=== PATIENT | female | born 1960 | race Two or more races ===

== ENCOUNTER 2020-12-11 02:57 | Emergency (ER) | payer SELFPAY ==
[~2020-12-11] VITALS: Ht 162.6 cm; Wt 74.5 kg
[2020-12-11] MEDS ORDERED: methylPREDNISolone SOD SUCC PF 125 MG/2 ML VIAL. IM ONE (03:15)
[2020-12-11] MEDS ORDERED: ALBUTEROL SULFATE 2.5 MG/3 ML NEBU. NEB ONE ×2 (03:15→04:15)
[2020-12-11] MEDS ORDERED: ALBU2.5V14 NEB (03:27)
[2020-12-11] MEDS ORDERED: PRED20TA PO (03:27)
[2020-12-11] MEDS ORDERED: ALBU2.5V8 IH (03:28)
--- NOTE | 2020-12-11 03:29 | PHYS DOC ---
Past Medical History Past Medical History: Asthma Past Surgical History: No Surgical History Smoking Status: Never Smoker Alcohol Use: None General Adult EDM: Chief Complaint: ASTHMA HPI: HPI: Patient is a 60 year old female past medical history asthma presents with a chief complaint of asthma exacerbation. Onset of symptoms around midnight. Patient has associated cough with sputum production. Patient home treatment with albuterol nebulizer with minimal improvement. Patient denies any fevers or chills. Denies any sick contacts. Has not received covid shot. Review of Systems: Review of Systems: Review of systems: Constitutional symptoms- No fever, no chills. Eyes- No Discharge, No Visual Loss Respiratory symptoms- Positive shortness of breath, Positive wheezing, No Dyspnea on Exertion Cardiovascular Systems; No chest pain, No Palpitations, No syncope Gastrointestinal symptoms: NO abdominal pain, no nausea, no vomiting or diarrhea. Genitourinary symptoms: No dysuria. Musculoskeletal symptoms: No back pain No extremity pain. NEUROLOGICAL Symptoms: No headache, no generalized weakness; No focal Weakness Heart Score: C/O Chest Pain: N/A Risk Factors: Risk Factors: DM, Current or recent (<one month) smoker, HTN, HLP, family history of CAD, obesity. Risk Scores: Score 0 - 3: 2.5% MACE over next 6 weeks - Discharge Home Score 4 - 6: 20.3% MACE over next 6 weeks - Admit for Clinical Observation Score 7 - 10: 72.7% MACE over next 6 weeks - Early Invasive Strategies Current Medications: Current Medications Medications (Trade) Dose Ordered Sig/Miahi Start Time Stop Time Status Last Admin Dose Admin Albuterol Sulfate (Ventolin Neb Soln) 2.5 mg 1X ONCE 12/11/20 03:15 12/11/20 03:18 DC Albuterol/ Ipratropium (Duoneb) 3 ml 1X ONCE 12/11/20 03:30 12/11/20 03:31 Methylprednisolone Sodium Succinate (SOLU-Medrol 125MG VIAL) 125 mg 1X ONCE 12/11/20 03:15 12/11/20 03:16 DC Allergies: Allergies: Allergies Coded Allergies Type Severity Reaction Last Updated Verified No Known Drug Allergies 12/11/20 No Physical Exam: PE: General: alert, no acute distress. Skin: warm, dry and intact. Head:: Normocephalic, atraumatic. Neck: Trachea midline. Eyes: EOMI, Normal conjunctiva, No drainage CARDIOVASCULAR: Regular rate and rhythm expiratory wheeze RESPIRATORY: No respiratory distress Back: Full range of motion. MUSCULOSKELETAL: Full range of motion of bilateral upper and lower extremities. GASTROINTESTINAL: Abdomen soft without rebound or guarding. NEUROLOGICAL: Alert and noted to person, place and time. No neurological deficits observed Psychiatric: Cooperative. Normal judgment Current Patient Data: Vital Signs: Vital Signs Date Time Temp Pulse Resp B/P (MAP) Pulse Ox O2 Delivery O2 Flow Rate FiO2 12/11/20 03:00 98.1 89 26 147/78 (101) 96 Room Air 98.1 EKG: EKG: [] Radiology/Procedures: Radiology/Procedures: [] Impression: Chest x-ray no focal infiltrate no bony abnormalities Course & Med Decision Making: Course & Med Decision Making Pertinent Labs and Imaging studies reviewed. (See chart for details) [] Dragon Disclaimer: Dragon Disclaimer: This electronic medical record was generated, in whole or in part, using a voice recognition dictation system. Departure Departure Impression: Primary Impression: Asthma exacerbation Disposition: HOME SELF CARE/HOMELESS Condition: STABLE Patient Instructions: Asthma, Adult Scripts Albuterol Sulfate (Proair Hfa) 8.5 Gm Hfa.aer.ad 2 PUFF IH PRN Q4-6HRS PRN for wheezing for 21 Days, #1 INHALER 0 Refills Prov: JOSE DE JESUS DANIELSON DO 12/11/20 Albuterol Sulfate (ALBUTEROL SULFATE CONC NEB SOLN) 2.5 Mg/0.5 Ml Vial.neb 1 VIAL NEB Q4HRS, #60 VIAL 1 Refill Prov: JOSE DE JESUS DANIELSON DO 12/11/20 Prednisone (PREDNISONE) 20 Mg Tablet 1 TAB PO UD for 12 Days, #15 TAB Take 2 tabs days 1,2,3 1.5 tabs days 3,4,5 1 tab days 6,7,8 0.5 tab days 9,10,11 Prov: JOSE DE JESUS DANIELSON DO 12/11/20 JOSE DE JESUS DANIELSON DO Dec 11, 2020 03:28
[2020-12-11] MEDS ORDERED: IPRATRPIUM/ALBUTEROL 0.5/2.5MG 3 ML NEBU. NEB ONE (03:30)
[2020-12-11 03:33] VITALS: BP 153/95
[2020-12-11] MEDS ORDERED: ACETAMINOPHEN 325 MG TABLET. PO ONE (04:00)
--- NOTE | 2020-12-11 04:34 | RAD ---
XR CHEST 1V History: Reason: sob / Spl. Instructions: / History: Comparison: None. Findings: No consolidation or pleural effusion. Normal heart size. No pneumothorax. Impression: 1. No acute cardiopulmonary process. Electronically signed by: Nikolai Martin DO (12/11/2020 4:31 AM) [facility] [place]
== END 2020-12-11 04:59 | disposition home or self-care (01) ==
LOC: ER 02:57
DX: J45.901 Unspecified asthma with (acute) exacerbation (principal)
CPT/HCPCS: 71045; 94640; 96372; 99284; J2930; J7613